=== PATIENT | male | born 1975 | race Caucasian/White ===

== ENCOUNTER 2020-09-02 12:52 | Observation (INO) ==
[2020-09-02] MEDS ORDERED: 0.9 % SODIUM CHLORIDE 2,000 ML IV ONE (13:28)
[2020-09-02] MEDS ORDERED: ONDANSETRON 4 MG/2 ML VIAL IV ONE (13:28)
--- NOTE | 2020-09-02 13:43 | Emergency Department Note ---
Nausea/Vomiting/Diarrhea HPI General Chief complaint: Nausea/Vomiting/Diarrhea Stated complaint: Several complaints Time Seen by Provider: 09/02/20 13:19 Source: patient Mode of arrival: ambulatory Limitations: no limitations History of Present Illness HPI Narrative: This a 45-year-old male patient who had an umbilical hernia repair with Dr. Villa on 08/17/2020. He has been having symptoms of nausea and fever for about 6 days. He is also experiencing a loss of appetite, headaches, myalgias, chills and sweats. He had a fever to 102 on Sunday. He went for a Covid test and it was negative. He saw his surgeon yesterday to evaluate his wound, and the surgeon noted that it was not healing as well as expected. He states that the incision has been draining small amounts of fluid. Today he presents with significant jaundice. He woke up with it this morning. He states that he has been taking his prescribed narcotic which is hydrocodone/acetaminophen as directed, has also been taking some DayQuil, and has been taking about 20 pills of kratom daily. He stopped taking these me dications on Sunday. He has a history of excessive alcohol use drinking up to 1/5 every weekend up until about a year ago when he quit drinking. He has no other significant medical history other than low testosterone and is on weekly testosterone. Other symptoms include difficulty initiating urine stream. He noted very dark, almost orange/reddish urine over the last few days. Also having some difficulty moving his bowels. No diarrhea. No melena or hematochezia. He has chronic abdominal pain since he was a child, and denies acute abdominal pain. Denies CVA tenderness. Denies cough and congestion. Related Data Home Medications Medication Instructions Recorded Confirmed anastrozole [Arimidex] 0.5 mg PO 2-3XW PRN 08/09/20 09/02/20 testosterone cypionate 250 mg IM QWEEK 08/09/20 09/02/20 Allergies Allergy/AdvReac Type Severity Reaction Status Date / Time Sulfa (Sulfonamide Allergy Mild Hives Verified 09/02/20 12:54 Antibiotics) Review of Systems ROS ROS Narrative: Narrative: All systems ED: reviewed and negative except as stated. [facility] Narrative Patient History Narrative: Narrative: Medical/Surgical/Family History All Active Problems Hepatitis (Acute) Acute viral syndrome (Acute) Abdominal bloating with cramps (Acute) Medical History FH: colon polyps Low testosterone in male Umbilical hernia Surgical History History of tonsillectomy History of umbilical hernia repair 08/17/2020-open S/P tympanoplasty Family History Father FH: colon polyps Other No pertinent family history Social History Smoking Status: Former smoker Alcohol Intake Frequency: former alcohol drinker Substance Use: does not use Exam Narrative Narrative: Narrative: General Limitations: no limitations General appearance: Present alert Eye Eye: Present PERRL, EOMI and scleral icterus ENT ENT: Present normal oropharynx Chest Chest: Present normal inspection and symmetric chest wall rise Respiratory Respiratory: Present normal lung sounds bilaterally Cardiovascular Cardiovascular: Present regular rate, normal rhythm and normal heart sounds Adbominal Abdominal: Present soft and distention; Absent tenderness, guarding, rigidity, Marlow's sign, tenderness at McBurney's Point and ascites Extremities Extremities: Present normal inspection and normal capillary refill Neurological Neurological: Present alert, oriented X3 and CN II-XII intact; Absent motor sensory deficit Psychiatric Psychiatric: Present normal affect and normal mood Skin Skin: Present warm (WNL) and other (Jaundice) Course Course Course Narrative: 45-year-old male presents with acute jaundice status post umbilical hernia surgery 2 weeks ago with Percocet and kratom use postoperatively. Reevaluation(s) Reevaluation #1: We will obtain labs, CBC, acetaminophen level, CRP, CMP, UA Blood cultures x2 Obtain limited abdominal ultrasound Contact poison control regarding kratom Reevaluation #2: He has mild transaminitis with an elevated a alk phos of 202. CRP is elevated 1.5 and he has a white blood cell count of 12.4. Serum creatinine not obtained secondary to elevated bilirubin of 11.5. Nctxt-sg-afco creatinine is 0.7. Right upper quadrant ultrasound shows cholestatic disease. No obstructive process. No pericolic fat stranding, fluid collections, or abscesses. Previous umbilical hernia with small heterogeneous formation, which could represent scar tissue versus air pocket versus possible abscess. Discussed with Dr. Osman from poison control with the following recommendations: -Check viral studies to include hepatitis A/B/C, EBV IgG/IgM, and CMV IgG IgM -Less likely to be acetaminophen poisoning given increased alk phos; however this must be considered as he has been taking narcotic with acetaminophen and [id number] DayQuil. Start N-acetylcysteine treatment prophylactically. -There are several case reports of kratom causing cholestatic hepatitis with LFT pattern of increased alk phos and mild transaminitis. Supportive care is the standard of care. -We will need admission for monitoring Vital Signs Vital signs: Vital Signs Temperature 99.0 F 09/02/20 12:54 Pulse Rate 91 H 09/02/20 12:54 Respiratory Rate 16 09/02/20 12:54 Blood Pressure 138/89 09/02/20 12:54 Pulse Oximetry (%) 99 09/02/20 12:54 Temperature 99.3 F H 09/02/20 20:25 Pulse Rate 98 H 09/02/20 20:25 Respiratory Rate 20 09/02/20 20:25 Blood Pressure 130/81 09/02/20 20:25 Pulse Oximetry (%) 96 09/02/20 20:25 MDM MDM Narrative Medical decision making narrative: Acute liver injury Cholestatic hepatitis Patient will need admission for monitoring for initiation of N-acetylcysteine therapies. Viral serologies have been ordered. Patient was signed out to Dr. Marlow, hospitalist service, who is accepting the patient for admission. The patient is stable at this time and agrees to admission. Lab Data Result diagrams: 09/02/20 13:38 09/02/20 15:59 Labs: Lab Results 09/02/20 09/02/20 09/02/20 Range/Units 13:38 13:38 13:38 WBC 12.4 H (4.5-11.0) K/mcL RBC 4.79 (4.50-5.90) M/mcL Hgb 15.0 (13.5-16.5) g/dL Hct 41.2 (41.0-55.0) % MCV 86.0 (80.0-100.0) fL MCH 31.3 (26.0-34.0) pg MCHC 36.4 H (31.0-36.0) g/dL RDW 13.2 (11.5-14.5) % Plt Count 212 (140-440) K/mcL MPV 9.9 (7.4-10.4) fL Seg Neutrophils % 62 (38-78) % Lymphocytes % 24 (15-49) % Monocytes % (Manual) 10 (1-12) % Eosinophils % (Manual) 4 (0-7) % Platelet Estimate Normal (Normal) RBC Morphology Normal (Normal) PT (11.9-14.5) sec INR (0.9-1.1) VBG Lactic Acid 0.7 (0.5-2.0) mmol/L Sodium 133 (133-145) mmol/L Potassium 3.7 (3.3-5.1) mmol/L Chloride 100 (96-108) mmol/L Carbon Dioxide 23 (22-30) mmol/L Anion Gap 10.0 (8.0-16.0) BUN 6 (6-20) mg/dL Creatinine TNP POC Creatinine (0.6-1.2) mg/dL GFR Calculation TNP Glucose 121 H (70-105) mg/dL Calcium 8.5 L (8.6-10.4) mg/dL Total Bilirubin 11.5 H (0.1-1.0) mg/dL AST 196 H (<40) U/L ALT 407 H (<40) U/L Alkaline Phosphatase 202 H (39-117) U/L C-Reactive Protein 1.50 H (0.03-0.80) mg/dL Total Protein 6.4 (5.9-8.4) gm/dL Albumin 3.6 (3.2-5.2) gm/dL Globulin 2.8 (2.2-3.7) gm/dL Albumin/Globulin Ratio 1.3 (1.0-2.3) Lipase 26 (7-60) U/L Urine Color Urine Appearance (Clear) Urine pH (5.0-9.0) Ur Specific [place] (1.000-1.035) Urine Protein (Negative) mg/dL Urine Glucose (UA) (Negative) mg/dL Urine Ketones (Negative) mg/dL Urine Occult Blood (Negative) mg/dL Urine Nitrate (Negative) Urine Bilirubin (Negative) mg/dL Urine Urobilinogen mg/dL Ur Leukocyte Esterase (Negative) /ug Ur Culture Indicated? Acetaminophen ug/mL Hepatitis A IgM Ab (Non-Reactive) Hep Bs Antigen (Negative) Hep Bs Antibody (Negative) Hep B Core IgM Ab (Non-Reactive) Hepatitis C Antibody (Non-Reactive) 09/02/20 09/02/20 09/02/20 Range/Units 13:38 13:38 13:38 WBC (4.5-11.0) K/mcL RBC (4.50-5.90) M/mcL Hgb (13.5-16.5) g/dL Hct (41.0-55.0) % MCV (80.0-100.0) fL MCH (26.0-34.0) pg MCHC (31.0-36.0) g/dL RDW (11.5-14.5) % Plt Count (140-440) K/mcL MPV (7.4-10.4) fL Seg Neutrophils % (38-78) % Lymphocytes % (15-49) % Monocytes % (Manual) (1-12) % Eosinophils % (Manual) (0-7) % Platelet Estimate (Normal) RBC Morphology (Normal) PT 13.0 (11.9-14.5) sec INR 0.9 (0.9-1.1) VBG Lactic Acid (0.5-2.0) mmol/L Sodium (133-145) mmol/L Potassium (3.3-5.1) mmol/L Chloride (96-108) mmol/L Carbon Dioxide (22-30) mmol/L Anion Gap (8.0-16.0) BUN (6-20) mg/dL Creatinine POC Creatinine (0.6-1.2) mg/dL GFR Calculation Glucose (70-105) mg/dL Calcium (8.6-10.4) mg/dL Total Bilirubin (0.1-1.0) mg/dL AST (<40) U/L ALT (<40) U/L Alkaline Phosphatase (39-117) U/L C-Reactive Protein (0.03-0.80) mg/dL Total Protein (5.9-8.4) gm/dL Albumin (3.2-5.2) gm/dL Globulin (2.2-3.7) gm/dL Albumin/Globulin Ratio (1.0-2.3) Lipase (7-60) U/L Urine Color Urine Appearance (Clear) Urine pH (5.0-9.0) Ur Specific [place] (1.000-1.035) Urine Protein (Negative) mg/dL Urine Glucose (UA) (Negative) mg/dL Urine Ketones (Negative) mg/dL Urine Occult Blood (Negative) mg/dL Urine Nitrate (Negative) Urine Bilirubin (Negative) mg/dL Urine Urobilinogen mg/dL Ur Leukocyte Esterase (Negative) /ug Ur Culture Indicated? Acetaminophen < 5.0 ug/mL Hepatitis A IgM Ab (Non-Reactive) Hep Bs Antigen (Negative) Hep Bs Antibody 3.65 negative (Negative) Hep B Core IgM Ab (Non-Reactive) Hepatitis C Antibody (Non-Reactive) 09/02/20 09/02/20 09/02/20 Range/Units 13:38 14:30 15:59 WBC (4.5-11.0) K/mcL RBC (4.50-5.90) M/mcL Hgb (13.5-16.5) g/dL Hct (41.0-55.0) % MCV (80.0-100.0) fL MCH (26.0-34.0) pg MCHC (31.0-36.0) g/dL RDW (11.5-14.5) % Plt Count (140-440) K/mcL MPV (7.4-10.4) fL Seg Neutrophils % (38-78) % Lymphocytes % (15-49) % Monocytes % (Manual) (1-12) % Eosinophils % (Manual) (0-7) % Platelet Estimate (Normal) RBC Morphology (Normal) PT (11.9-14.5) sec INR (0.9-1.1) VBG Lactic Acid (0.5-2.0) mmol/L Sodium (133-145) mmol/L Potassium (3.3-5.1) mmol/L Chloride (96-108) mmol/L Carbon Dioxide (22-30) mmol/L Anion Gap (8.0-16.0) BUN (6-20) mg/dL Creatinine 0.7 POC Creatinine 0.7 (0.6-1.2) mg/dL GFR Calculation 112 Glucose (70-105) mg/dL Calcium (8.6-10.4) mg/dL Total Bilirubin (0.1-1.0) mg/dL AST (<40) U/L ALT (<40) U/L Alkaline Phosphatase (39-117) U/L C-Reactive Protein (0.03-0.80) mg/dL Total Protein (5.9-8.4) gm/dL Albumin (3.2-5.2) gm/dL Globulin (2.2-3.7) gm/dL Albumin/Globulin Ratio (1.0-2.3) Lipase (7-60) U/L Urine Color [place] Urine Appearance Clear (Clear) Urine pH 7.0 (5.0-9.0) Ur Specific [place] 1.006 (1.000-1.035) Urine Protein Negative (Negative) mg/dL Urine Glucose (UA) Negative (Negative) mg/dL Urine Ketones Negative (Negative) mg/dL Urine Occult Blood Negative (Negative) mg/dL Urine Nitrate Negative (Negative) Urine Bilirubin 2.0 A (Negative) mg/dL Urine Urobilinogen Negative mg/dL Ur Leukocyte Esterase Negative (Negative) /ug Ur Culture Indicated? No Acetaminophen ug/mL Hepatitis A IgM Ab (Non-Reactive) Hep Bs Antigen (Negative) Hep Bs Antibody (Negative) Hep B Core IgM Ab (Non-Reactive) Hepatitis C Antibody Non-reactive (Non-Reactive) 09/02/20 Range/Units 16:44 WBC (4.5-11.0) K/mcL RBC (4.50-5.90) M/mcL Hgb (13.5-16.5) g/dL Hct (41.0-55.0) % MCV (80.0-100.0) fL MCH (26.0-34.0) pg MCHC (31.0-36.0) g/dL RDW (11.5-14.5) % Plt Count (140-440) K/mcL MPV (7.4-10.4) fL Seg Neutrophils % (38-78) % Lymphocytes % (15-49) % Monocytes % (Manual) (1-12) % Eosinophils % (Manual) (0-7) % Platelet Estimate (Normal) RBC Morphology (Normal) PT (11.9-14.5) sec INR (0.9-1.1) VBG Lactic Acid (0.5-2.0) mmol/L Sodium (133-145) mmol/L Potassium (3.3-5.1) mmol/L Chloride (96-108) mmol/L Carbon Dioxide (22-30) mmol/L Anion Gap (8.0-16.0) BUN (6-20) mg/dL Creatinine POC Creatinine (0.6-1.2) mg/dL GFR Calculation Glucose (70-105) mg/dL Calcium (8.6-10.4) mg/dL Total Bilirubin (0.1-1.0) mg/dL AST (<40) U/L ALT (<40) U/L Alkaline Phosphatase (39-117) U/L C-Reactive Protein (0.03-0.80) mg/dL Total Protein (5.9-8.4) gm/dL Albumin (3.2-5.2) gm/dL Globulin (2.2-3.7) gm/dL Albumin/Globulin Ratio (1.0-2.3) Lipase (7-60) U/L Urine Color Urine Appearance (Clear) Urine pH (5.0-9.0) Ur Specific [place] (1.000-1.035) Urine Protein (Negative) mg/dL Urine Glucose (UA) (Negative) mg/dL Urine Ketones (Negative) mg/dL Urine Occult Blood (Negative) mg/dL Urine Nitrate (Negative) Urine Bilirubin (Negative) mg/dL Urine Urobilinogen mg/dL Ur Leukocyte Esterase (Negative) /ug Ur Culture Indicated? Acetaminophen ug/mL Hepatitis A IgM Ab Non-reactive (Non-Reactive) Hep Bs Antigen Negative (Negative) Hep Bs Antibody (Negative) Hep B Core IgM Ab Non-reactive (Non-Reactive) Hepatitis C Antibody Non-reactive (Non-Reactive) ED POC Tests ED POC Tests: IKE - Influenza A Negative IKE - Influenza B Negative IKE - SARS Antigen Negative CC TIME Critical Care Time Critical Care Time: Yes Total Critical Care Time: 65 Attestation: Patient is at risk of for acute liver injury. More than 50% of my time was spent at the bedside with the patient, evaluation for imaging and laboratory studies, discussion with poison control for differential and recommendations, and coordination of care for admission. Discharge Plan Patient/Caregiver Discharge Instructions Pt seen by SWITCHMAN SUPERVISOR/PA only: Yes Clinical Impression: Hepatitis, Acute viral syndrome Patient Disposition: Xfer As Inpt ([facility]) Condition: Fair Discharge Date/Time: 09/02/20 17:59 Discharge Location: [facility]
--- NOTE | 2020-09-02 14:33 | Ultrasound Report ---
History: New onset jaundice FINDINGS: The liver is within upper limits normal in size and appears homogeneous. There is no evidence of a mass or infiltrative process. Doppler shows normal blood flow in the hepatic and portal veins. The gallbladder is severely contracted and there is uniform thickening of the wall. Patient was nontender while scanning over the gallbladder. The wall measures 4 mm. No stone is seen within the lumen. Common bile duct measures 4 mm. Visualized portions of the pancreas appear normal without evidence of a mass or inflammation. No ascites is present. Patient is reported fatty umbilical hernia repair performed two weeks ago. At the level of the umbilicus there is a complex heterogeneous structure with bright echogenic foci and hypoechoic components. It measures 1.9 x 2.3 x 2.6 cm. Adjacent to this there is a small pocket of fluid in the subcutaneous fat which measures 4 x 8 x 8 mm. IMPRESSION: Anatomically normal liver Abnormally thickened gallbladder wall. This is a nonspecific finding which may be seen after eating or with chronic cholecystitis Heterogeneous collection around the umbilicus at the site of recent surgery. This could be evolving scar tissue with inflammation, abscess or recurrent hernia. Sheron Sheriff was called with report Interpreted and Authenticated by: Catracho Hernandez 09/02/20
[2020-09-02 14:52] LABS: Hematocrit 41.2 % (41.0-55.0); Mean Corpuscular HGB Conc 36.4 g/dL (31.0-36.0); Mean Platelet Volume 9.9 fL (7.4-10.4); Platelet Count 212 K/mcL (140-440); RBC 4.79 M/mcL (4.50-5.90); Red Cell Distribution Width 13.2 % (11.5-14.5); WBC 12.4 K/mcL (4.5-11.0)
[2020-09-02 14:56] LABS: INR 0.9 (0.9-1.1)
[2020-09-02 14:59] LABS: ALT/SGPT 407 U/L (<40); AST/SGOT 196 U/L (<40); Albumin 3.6 gm/dL (3.2-5.2); Albumin/Globulin Ratio 1.3 (1.0-2.3); Alkaline Phosphatase 202 U/L (39-117); Bilirubin,Total 11.5 mg/dL (0.1-1.0); Blood Urea Nitrogen 6 mg/dL (6-20); Calcium 8.5 mg/dL (8.6-10.4); Carbon Dioxide 23 mmol/L (22-30); Chloride 100 mmol/L (96-108); Globulin 2.8 gm/dL (2.2-3.7); Glucose 121 mg/dL (70-105)
[2020-09-02] MEDS ORDERED: ACETYLCYSTEINE IV ONE ×5 (15:53→22:00)
[2020-09-02] MEDS ORDERED: WATER IV ONE ×5 (15:53→22:00)
[2020-09-02] MEDS ORDERED: DEXTROSE 5% IV ONE ×5 (15:53→22:00)
[2020-09-02 16:05] LABS: Eosinophils % (Manual) 4 % (0-7); Lymphocytes % 24 % (15-49); Monocytes % (Manual) 10 % (1-12); Platelet Estimate NORMAL (Normal); RBC Morphology NORMAL (Normal); Segmented Neutrophils % 62 % (38-78)
[2020-09-02 16:09] LABS: POC Creatinine 0.7 mg/dL (0.6-1.2)
[2020-09-02 16:14] LABS: Appearance,Urine CLEAR (Clear); Color,Urine AMBER; Culture Indicated,Urine No; Glucose,Urine (UA) Negative (Negative); Ketones,Urine Negative (Negative); Leukocyte Esterase,Urine Negative /ug (Negative); Nitrate,Urine Negative (Negative); Protein,Urine Negative (Negative); Specific Gravity,Urine 1.006 (1.000-1.035); Urine Blood Negative (Negative); Urobilinogen,Urine Negative
[2020-09-02] MEDS ORDERED: IBUPROFEN 200 MG TABLET PO ONE (16:30)
[2020-09-02 17:11] LABS: Hepatitis B Surface Antibody 3.65 Negative (Negative); Hepatitis C Virus Antibody Non-Reactive (Non-Reactive)
[2020-09-02 18:13] LABS: Glomerular Filtration Rate 112
[2020-09-02] MEDS ORDERED: PROCHLORPERAZINE 10 MG/2 ML VIAL IV PRN (18:17)
[2020-09-02] MEDS ORDERED: KETOROLAC 10 MG TABLET PO PRN (18:17)
[2020-09-02] MEDS ORDERED: MAGNESIUM HYDROXIDE 30 ML ORAL.SUSP PO PRN (18:17)
[2020-09-02] MEDS ORDERED: ONDANSETRON 4 MG/2 ML VIAL IV PRN (18:17)
[2020-09-02] MEDS ORDERED: SENNOSIDES 1 TABLET PO PRN (18:17)
[2020-09-02] MEDS ORDERED: 0.9 % SODIUM CHLORIDE 1,000 ML IV SCH ×2 (18:17→19:26)
[2020-09-02] MEDS ORDERED: oxyCODONE HCL 5 MG TABLET PO PRN (18:17)
[2020-09-02 18:29] LABS: Hepatitis B Surface Antigen Negative (Negative); Hepatitis C Virus Antibody Non-Reactive (Non-Reactive)
--- NOTE | 2020-09-02 20:21 | Internal Med History&Physical ---
HPI History of Present Illness Patient information: Note initiated : 09/02/20 at 8:19 pm Service Date, if different from initiated Date: [] Patient: Teodoro Spencer a 45 y/o M admitted on 09/02/20 for Several Complaints. History of present illness: Mr. Spencer is a 45 year old M who presents to the emergency department due to jaundice. He has a recent history of umbilical hernia repair on 08/27. Postoperatively, the patient had a prescription for Morris 5/325, 20 tablets. Due to postoperative pain he started using kratom [id number] pills, consuming about 20 pills a day to help augment his analgesia. He was also using ibuprofen. On last Sunday evening (08/28) the patient developed chills and nausea. On Sunday he had fever to 102 degrees, chills and developed a headache. This was also associated with myalgia, malaise and a dry mouth. Since last , he is intermittently felt feverish, though that did improve 3 days ago on Sunday. His headache is persisted, its throbbing, frontal going to the back, associated with mild photophobia. He also notes that when watching TV, rapid motions on the TV can induce nausea. He is occasionally had headaches in the past, no history of migraine. His mother does have a history of migraines. No neck stiffness. He is up frequently during the night, as his headache tends to wax and wane throughout the night, awakening him. Today about 3 AM he is feeling nauseated with a headache, have been woken by the headache. In the bathroom he noticed that his eyes looked yellow. His initially later that morning did not think he looked that abnormal, however while later his mother visited and she noticed that he looked yellow. He had been seen for routine postsurgical follow-up yesterday, and there was no apparent jaundice at that time. During this time, given his symptoms, he had SARS-CoV-2 nasal swab done on Sunday, which he found out had negative results today. Due to the jaundice who presents to the emergency department. Evaluation reveals afebrile patient with normal vital signs. Labs were notable for total bilirubin 11.5, AST of 196, ALT 407, alkaline phosphatase of 202. White count was mildly elevated at 12,000, renal function was normal as was INR at 0.9. Given his Morris use as well as using [id number] cold and flu preparations, there was concern for possible acetaminophen toxicity. Acetaminophen level is undetected. Poison Control Center was contacted. Given his history and pattern of enzymes there were concern for possible kratom toxicity. This has been reported in the literature and is a likelihood score of "B" which means likely contributor to hepatic toxicity, according to the NIH liver toxicity database. Given these findings, possibility this could represent acetaminophen, the Poison Control Center recommended acetylcysteine therapy and further evaluation. Patient has not generally been out of his house postoperatively. He has not eaten in restaurants nor pot locks. He received no transfusions, has had no new sexual partners. He does inject testosterone weekly as prescribed, using a new needle each time. No nonprescription injection drug use. He does not drink alcohol. He has no history of liver disease. There is no family history of liver disease. He is being admitted to continue acetylcysteine treatment and to monitor for deterioration and hepatic function. Review of Systems Review of systems: In addition to reported above in the HPI, the patient has had some mild dyspnea, felt a mild tightness across his chest last night. Complains of poor energy. He has had myalgias. He has had a significant dry mouth and is drinking water. His vision is maybe a little more blurry than usual with his prescription glasses. No double vision. No cough or sputum production. No current abdominal pain, no dysuria. He notes that his urine has gotten more dark and more yellow as the week has progressed. No rashes, no bruising, no bleeding. No focal neurologic symptoms. PFSH PFSH All Active Problems (Updated 09/02/20 @ 20:38 by Anita Dempsey MD) Hepatitis (Acute) Acute viral syndrome (Acute) Abdominal bloating with cramps (Acute) Medical History (Updated 09/02/20 @ 20:38 by Anita Dempsey MD) FH: colon polyps Low testosterone in male Umbilical hernia Surgical History (Updated 09/02/20 @ 20:38 by Anita Dempsey MD) History of tonsillectomy History of umbilical hernia repair 08/17/2020-open S/P tympanoplasty Family History Father FH: colon polyps Other No pertinent family history Social History marital status: smoking status: Former smoker smoking status stop date: 07/02/15 alcohol intake frequency: former alcohol drinker substance use type: does not use MEDS/ALLERGIES Home Medications and Allergies Home Medications Medication Instructions Recorded Confirmed Type anastrozole [Arimidex] 0.5 mg PO 2-3XW PRN 08/09/20 09/02/20 History testosterone cypionate 250 mg IM QWEEK 08/09/20 09/02/20 History Allergies Allergy/AdvReac Type Severity Reaction Status Date / Time Sulfa (Sulfonamide Allergy Mild Hives Verified 09/02/20 12:54 Antibiotics) EXAM Constitutional Vitals: Temp Pulse Resp BP Pulse Ox 99.1 F H 96 H 16 132/85 98 09/02/20 18:07 09/02/20 18:07 09/02/20 18:07 09/02/20 18:07 09/02/20 18:07 GENERAL: Alert, oriented, in no acute distress. Cooperative, appears stated age. HEENT: Atraumatic. PERRL at 3 mm, EOMI without nystagmus, conjunctiva not injected, scleral icterus present. Hearing grossly intact. Mucous membranes are moist, oropharynx without lip or gum lesions, no erythema. Tongue midline. NECK: Supple without meningismus, no thyromegaly RESPIRATORY: Breath sounds clear bilaterally without wheezes or rhonchi. Respiratory effort is unlabored. CARDIOVASCULAR: Regular rate and rhythm, no murmur gallop or rub. No peripheral edema. Carotid pulses 2+ without bruit. Pedal pulses 2+. GI: Abdomen soft, nontender, no guarding or rebound. Liver margin is not palpable, no right upper quadrant tenderness with palpation. Spleen is not palpable. Bowel sounds are present. LYMPHATIC: No cervical or supraclavicular lymphadenopathy MUSCULOSKELETAL: No joint erythema or swelling, normal range of motion in all extremities. SKIN: Jaundiced, intact, warm, dry. Skin turgor normal. Healing umbilical surgical wound. NEUROLOGIC: Cranial nerves II through XII grossly intact. Muscle mass normal. Strength 5/5 in the upper and lower extremities. Sensation intact to light touch bilaterally. PSYCHIATRIC: Alert, oriented x3, normal mood and affect, normal insight. DATA Data Completed and Pending Labs: Labs from last 24 hours 03/10/2009/02/20 09/02/20 16:44 16:44 16:44 WBC RBC Hgb Hct MCV MCH MCHC RDW Plt Count MPV Seg Neutrophils % Lymphocytes % Monocytes % (Manual) Eosinophils % (Manual) Platelet Estimate RBC Morphology PT INR VBG Lactic Acid Sodium Potassium Chloride Carbon Dioxide Anion Gap BUN Creatinine POC Creatinine GFR Calculation Glucose Calcium Total Bilirubin AST ALT Alkaline Phosphatase C-Reactive Protein Total Protein Albumin Globulin Albumin/Globulin Ratio Lipase Urine Color Urine Appearance Urine pH Ur Specific [place] Urine Protein Urine Glucose (UA) Urine Ketones Urine Occult Blood Urine Nitrate Urine Bilirubin Urine Urobilinogen Ur Leukocyte Esterase Ur Culture Indicated? Acetaminophen CMV IgG Ab Pending CMV IgM Ab Pending EBV Capsid Ag IgG Ab Pending EBV Capsid Ag IgM Ab Pending EBV Early Antigen Pending EBV Nuclear Ag IgG Ab Pending EBV Antibody Interp Pending Hepatitis A IgM Ab Non-reactive Hepatitis A Ab Total Hep Bs Antigen Negative Hep Bs Antibody Hep B Core IgM Ab Non-reactive Hepatitis C Antibody Non-reactive 09/02/20 09/02/20 09/02/20 15:59 14:30 13:38 WBC RBC Hgb Hct MCV MCH MCHC RDW Plt Count MPV Seg Neutrophils % Lymphocytes % Monocytes % (Manual) Eosinophils % (Manual) Platelet Estimate RBC Morphology PT INR VBG Lactic Acid Sodium Potassium Chloride Carbon Dioxide Anion Gap BUN Creatinine 0.7 POC Creatinine 0.7 GFR Calculation 112 Glucose Calcium Total Bilirubin AST ALT Alkaline Phosphatase C-Reactive Protein Total Protein Albumin Globulin Albumin/Globulin Ratio Lipase Urine Color [place] Urine Appearance Clear Urine pH 7.0 Ur Specific [place] 1.006 Urine Protein Negative Urine Glucose (UA) Negative Urine Ketones Negative Urine Occult Blood Negative Urine Nitrate Negative Urine Bilirubin 2.0 A Urine Urobilinogen Negative Ur Leukocyte Esterase Negative Ur Culture Indicated? No Acetaminophen CMV IgG Ab CMV IgM Ab EBV Capsid Ag IgG Ab EBV Capsid Ag IgM Ab EBV Early Antigen EBV Nuclear Ag IgG Ab EBV Antibody Interp Hepatitis A IgM Ab Hepatitis A Ab Total Hep Bs Antigen Hep Bs Antibody Hep B Core IgM Ab Hepatitis C Antibody Non-reactive 09/02/20 09/02/20 09/02/20 13:38 13:38 13:38 WBC RBC Hgb Hct MCV MCH MCHC RDW Plt Count MPV Seg Neutrophils % Lymphocytes % Monocytes % (Manual) Eosinophils % (Manual) Platelet Estimate RBC Morphology PT 13.0 INR 0.9 VBG Lactic Acid Sodium Potassium Chloride Carbon Dioxide Anion Gap BUN Creatinine POC Creatinine GFR Calculation Glucose Calcium Total Bilirubin AST ALT Alkaline Phosphatase C-Reactive Protein Total Protein Albumin Globulin Albumin/Globulin Ratio Lipase Urine Color Urine Appearance Urine pH Ur Specific [place] Urine Protein Urine Glucose (UA) Urine Ketones Urine Occult Blood Urine Nitrate Urine Bilirubin Urine Urobilinogen Ur Leukocyte Esterase Ur Culture Indicated? Acetaminophen < 5.0 CMV IgG Ab CMV IgM Ab EBV Capsid Ag IgG Ab EBV Capsid Ag IgM Ab EBV Early Antigen EBV Nuclear Ag IgG Ab EBV Antibody Interp Hepatitis A IgM Ab Hepatitis A Ab Total Pending Hep Bs Antigen Hep Bs Antibody 3.65 negative Hep B Core IgM Ab Hepatitis C Antibody 09/02/20 09/02/20 09/02/20 13:38 13:38 13:38 WBC 12.4 H RBC 4.79 Hgb 15.0 Hct 41.2 MCV 86.0 MCH 31.3 MCHC 36.4 H RDW 13.2 Plt Count 212 MPV 9.9 Seg Neutrophils % 62 Lymphocytes % 24 Monocytes % (Manual) 10 Eosinophils % (Manual) 4 Platelet Estimate Normal RBC Morphology Normal PT INR VBG Lactic Acid 0.7 Sodium 133 Potassium 3.7 Chloride 100 Carbon Dioxide 23 Anion Gap 10.0 BUN 6 Creatinine TNP POC Creatinine GFR Calculation TNP Glucose 121 H Calcium 8.5 L Total Bilirubin 11.5 H AST 196 H ALT 407 H Alkaline Phosphatase 202 H C-Reactive Protein 1.50 H Total Protein 6.4 Albumin 3.6 Globulin 2.8 Albumin/Globulin Ratio 1.3 Lipase 26 Urine Color Urine Appearance Urine pH Ur Specific [place] Urine Protein Urine Glucose (UA) Urine Ketones Urine Occult Blood Urine Nitrate Urine Bilirubin Urine Urobilinogen Ur Leukocyte Esterase Ur Culture Indicated? Acetaminophen CMV IgG Ab CMV IgM Ab EBV Capsid Ag IgG Ab EBV Capsid Ag IgM Ab EBV Early Antigen EBV Nuclear Ag IgG Ab EBV Antibody Interp Hepatitis A IgM Ab Hepatitis A Ab Total Hep Bs Antigen Hep Bs Antibody Hep B Core IgM Ab Hepatitis C Antibody Imaging and Cardiology US - abdomen: Status: image reviewed by me Additional comments: IMPRESSION: Anatomically normal liver Abnormally thickened gallbladder wall. This is a nonspecific finding which may be seen after eating or with chronic cholecystitis Heterogeneous collection around the umbilicus at the site of recent surgery. This could be evolving scar tissue with inflammation, abscess or recurrent hernia A/P Narrative A/P Narrative: Assessment: #Acute liver injury: Patient without evidence of encephalopathy, normal INR, not in fulminant hepatic failure -Elevations of AST and ALT approximately five and 10 times upper limit of normal -Elevation of alkaline phosphatase to suggest possible cholestasis -R value is 4.3, suggesting mixed hepatocellular and cholestatic picture -Significantly elevated bilirubin 11.8 -Differential for etiology includes acetaminophen with late presentation -Kratom toxicity also possible, case reports describes similar presentation -Acute viral hepatitis possible, though bases are often even more significant ly elevated -Artificial anabolic steroids are associated with liver injury, though testosterone is not in the database of compounds associated with liver injury -Iron overload is in the differential, less likely Woodrow's disease or autoimmune hepatitis given the level of elevations <15 uln Plan: * Hospitalized in observation * Continue acetylcysteine protocol * Send acute viral hepatitis panel * Send EBV and CMV antibodies * Check iron and TIBC * If evidence of iron overload, then check ferritin * Continue to monitor transaminases, bilirubin, alkaline phosphatase and INR * If work-up unrevealing, consider sending GURVINDER, anti-smooth muscle antibodies and antiliver/kidney microsomal antibodies * Ibuprofen, judicious oxycodone for headache Prophylaxis: Early ambulation and low risk patient CODE STATUS: Full code QUALITY VTE Deep Vein Thrombosis/Pulmonary Embolism Present on Admission: No
[2020-09-02] MEDS: FAMOTIDINE 20 MG TABLET PO SCH (20:34)
[2020-09-02] MEDS: 0.9 % SODIUM CHLORIDE 10 ML SYRINGE IV SCH (20:35)
[2020-09-02] MEDS: IBUPROFEN 600 MG TABLET PO PRN (22:35)
[2020-09-03] MEDS: 0.9 % SODIUM CHLORIDE 10 ML SYRINGE IV SCH ×2 (06:05→14:32)
[2020-09-03] MEDS: IBUPROFEN 600 MG TABLET PO PRN ×2 (06:25→12:08)
[2020-09-03 06:47] LABS: Basophils # (Auto) 0.07 K/mcL (0.00-0.20); Basophils % (Auto) 0.7 % (0.0-2.0); Eosinophils # (Auto) 0.46 K/mcL (0.00-0.70); Eosinophils % (Auto) 4.7 % (0.0-7.0); Hematocrit 37.3 % (41.0-55.0); Lymphocytes # (Auto) 2.23 K/mcL (1.50-4.80); Lymphocytes % (Auto) 22.9 % (15.0-49.0); Mean Corpuscular HGB Conc 37.5 g/dL (31.0-36.0); Mean Platelet Volume 9.6 fL (7.4-10.4); Monocytes # (Auto) 0.97 K/mcL (0.10-0.90); Neutrophils % (Auto) 61.7 % (38.0-78.0); Platelet Count 224 K/mcL (140-440); Prothrombin Time 13.8 sec (11.9-14.5); RBC 4.39 M/mcL (4.50-5.90); Red Cell Distribution Width 13.2 % (11.5-14.5); WBC 9.7 K/mcL (4.5-11.0)
[2020-09-03 07:05] LABS: Iron 82 ug/dL (61-157); TIBC Calculation 238 ug/dl (228-428); Transferrin % Saturation 34 % (20-50)
[2020-09-03 07:07] LABS: ALT/SGPT 351 U/L (<40); AST/SGOT 180 U/L (<40); Albumin 3.2 gm/dL (3.2-5.2); Albumin/Globulin Ratio 1.3 (1.0-2.3); Alkaline Phosphatase 238 U/L (39-117); Bilirubin,Direct 8.9 mg/dL (<0.3); Bilirubin,Total 10.7 mg/dL (0.1-1.0); Blood Urea Nitrogen 5 mg/dL (6-20); Calcium 8.3 mg/dL (8.6-10.4); Carbon Dioxide 25 mmol/L (22-30); Chloride 102 mmol/L (96-108); Globulin 2.5 gm/dL (2.2-3.7); Glucose 146 mg/dL (70-105); Lactate Dehydrogenase 208 U/L (135-225); Phosphorous 1.9 mg/dL (2.5-4.5); Triglycerides 191 mg/dL (<150)
[2020-09-03] MEDS: FAMOTIDINE 20 MG TABLET PO SCH (08:49)
--- NOTE | 2020-09-03 12:01 | Discharge Summary ---
Discharge Provider Provider Patient information: Note initiated : 09/03/20 at 11:59 am Service Date, if different from initiated Date: [] Patient: Teodoro Spencer a 45 y/o M admitted on 09/02/20 for Several Complaints. Chief Complaint: Jaundice Date of admission: 09/02/20 17:59 Discharge date: 09/03/20 Primary care physician: Dean French PA-C Admitting clinician: Anita Dempsey Consults: 09/02/20 Consult to Physician [CONS] Stat Comment: Consulting Provider: Anita Dempsey Reason For Exam: Physician to Consult Discharging clinician: Anita Dempsey Discharge Meds Discharge Medications Home Medications anastrozole [Arimidex] 0.5 mg PO 2-3XW PRN 08/09/20 [History Confirmed 09/02/20 Last Taken 08/28/20 09:00] testosterone cypionate 250 mg IM QWEEK 08/09/20 [History Confirmed 09/02/20 Last Taken 08/28/20 09:00] COURSE Hospital Course Hospital course: Presentation: Mr. Spencer is a 45 year old M who presents to the emergency department due to jaundice. He has a recent history of umbilical hernia repair on 08/27. Postoperatively, the patient had a prescription for Vander[place] 5/325, 20 tablets. Due to postoperative pain he started using kratom [id number] pills, consuming about 20 pills a day to help augment his analgesia. He was also using ibuprofen. On last Sunday evening (08/28) the patient developed chills and nausea. On Sunday he had fever to 102 degrees, chills and developed a headache. This was also associated with myalgia, malaise and a dry mouth. Since last weekend, he is intermittently felt feverish, though that did improve 3 days ago on Sunday. Today about 3 AM he is feeling nauseated with a headache, have been woken by the headache. In the bathroom he noticed that his eyes looked yellow. His initially later that morning did not think he looked that abnormal, however while later his mother visited and she noticed that he looked yellow. He had been seen for routine postsurgical follow-up yesterday, and there was no apparent jaundice at that time. During this time, given his symptoms, he had SARS-CoV-2 nasal swab done on Sunday, which he found out had negative results on the day of hospitalization. Due to the jaundice who presents to the emergency department. Evaluation reveals afebrile patient with normal vital signs. Labs were notable for total bilirubin 11.5, AST of 196, ALT 407, alkaline phosphatase of 202. White count was mildly elevated at 12,000, renal function was normal as was INR at 0.9. Given his Vanderpool use as well as using [id number] cold and flu preparations, there was concern for possible acetaminophen toxicity. Acetaminophen level is undetected. Poison Control Center was contacted. Given his history and pattern of enzymes there were concern for possible kratom toxicity. This has been reported in the literature and is a likelihood score of "B" which means likely contributor to hepatic toxicity, according to the NIH liver toxicity database. Given these findings, possibility this could represent acetaminophen, the Poison Control Center recommended acetylcysteine therapy and further evaluation. Patient has not generally been out of his house postoperatively. He does not drink alcohol. He has no history of liver disease. There is no family history of liver disease. He has had no risk factors for blood-borne hepatitis infection. Course: During the patient's hospitalization he tolerated acetylcysteine infusion protocol. The following day total bilirubin had improved mildly to 10.7 and transaminases were improving. His R-score at presentation was 4.3, suggesting a mixed hepatocellular and cholestatic process. At discharge the score was down to 2.5, bordering more towards cholestatic. Cholestatic and hepatocellular hepatitis has been reported with kratom use. In reviewing case reports, his presenting symptoms were similar to prior reports of kratom liver damage. It is also possible any liver toxicity from kratom was augmented by acetaminophen use. Patient's synthetic liver function was intact with normal INR. He had no evidence of encephalopathy. Acute hepatitis panel was negative. CMV and EBV assays are pending at discharge. Total iron and iron saturation were normal. Given his improvement with supportive care, further evaluation for other etiologies such as autoimmune hepatitis or copper overload were not undertaken. If he fails to continue to improve, these should be considered. His headache slowly improved and was generally controlled with ibuprofen. He will be discharged with close outpatient follow-up early next week. Discharge diagnosis: Acute liver injury, possibly secondary to kratom use Procedures: None Time Spent with Patient Time attestation: Total time spent providing and/or coordinating discharge services: >30 min EXAM Constitutional Vitals: Temp Pulse Resp BP Pulse Ox 98.6 F 81 18 124/80 97 09/03/20 11:45 09/03/20 11:45 09/03/20 11:45 09/03/20 11:45 09/03/20 11:45 General appearance: no acute distress Head Head exam: Present normal inspection Eye Eye exam: Present scleral icterus Respiratory Respiratory exam: Present normal respiratory exam Cardiovascular Cardiovascular exam: Present normal rate and rhythm GI/Abdominal GI/Abdominal exam: Present normal bowel sounds and soft; Absent distended, organomegaly, rebound and tenderness Additional comments: Liver edge not palpable, no right upper quadrant tenderness Extremities Exam Extremities exam: Absent pedal edema Neurological Exam Neurological exam: Present alert and oriented X3; Absent motor sensory deficit Skin Skin exam: Present abrasion and warm Additional comments: Jaundice present Discharge Data Data Completed and Pending Labs on day of discharge: Labs from last 24 hours 09/03/20 09/03/20 09/03/20 05:41 05:41 05:41 WBC RBC Hgb Hct MCV MCH MCHC RDW Plt Count MPV Neut % (Auto) Lymph % (Auto) Dade % (Auto) Eos % (Auto) Baso % (Auto) Lymph # (Auto) [place]ade # (Auto) Eos # (Auto) Baso # (Auto) Seg Neutrophils % Lymphocytes % Monocytes % (Manual) Eosinophils % (Manual) Absolute Neutrophils Platelet Estimate RBC Morphology PT 13.8 INR 1.0 VBG Lactic Acid Sodium 136 Potassium 3.5 Chloride 102 Carbon Dioxide 25 Anion Gap 9.0 BUN 5 L Creatinine TNP POC Creatinine GFR Calculation TNP Glucose 146 H Uric Acid 2.0 L Calcium 8.3 L Phosphorus 1.9 L Magnesium 1.9 Iron 82 TIBC 238 Unsat Iron Binding 156 Transferrin % Sat 34 Total Bilirubin 10.7 H Direct Bilirubin 8.9 H GGT 240 H AST 180 H ALT 351 H Alkaline Phosphatase 238 H Lactate Dehydrogenase 208 C-Reactive Protein Total Protein 5.7 L Albumin 3.2 Globulin 2.5 Albumin/Globulin Ratio 1.3 Triglycerides 191 H Lipase Urine Color Urine Appearance Urine pH Ur Specific [place] Urine Protein Urine Glucose (UA) Urine Ketones Urine Occult Blood Urine Nitrate Urine Bilirubin Urine Urobilinogen Ur Leukocyte Esterase Ur Culture Indicated? Acetaminophen CMV IgG Ab CMV IgM Ab EBV Capsid Ag IgG Ab EBV Capsid Ag IgM Ab EBV Early Antigen EBV Nuclear Ag IgG Ab EBV Antibody Interp Hepatitis A IgM Ab Hepatitis A Ab Total Hep Bs Antigen Hep Bs Antibody Hep B Core IgM Ab Hepatitis C Antibody 09/03/20 09/02/20 09/02/20 05:41 16:44 16:44 WBC 9.7 RBC 4.39 L Hgb 14.0 Hct 37.3 L MCV 85.0 MCH 31.9 MCHC 37.5 H RDW 13.2 Plt Count 224 MPV 9.6 Neut % (Auto) 61.7 Lymph % (Auto) 22.9 D[place] % (Auto) 10.0 Eos % (Auto) 4.7 Baso % (Auto) 0.7 Lymph # (Auto) 2.23 D[place] # (Auto) 0.97 H Eos # (Auto) 0.46 Baso # (Auto) 0.07 Seg Neutrophils % Lymphocytes % Monocytes % (Manual) Eosinophils % (Manual) Absolute Neutrophils 6.01 Platelet Estimate RBC Morphology PT INR VBG Lactic Acid Sodium Potassium Chloride Carbon Dioxide Anion Gap BUN Creatinine POC Creatinine GFR Calculation Glucose Uric Acid Calcium Phosphorus Magnesium Iron TIBC Unsat Iron Binding Transferrin % Sat Total Bilirubin Direct Bilirubin GGT AST ALT Alkaline Phosphatase Lactate Dehydrogenase C-Reactive Protein Total Protein Albumin Globulin Albumin/Globulin Ratio Triglycerides Lipase Urine Color Urine Appearance Urine pH Ur Specific [place] Urine Protein Urine Glucose (UA) Urine Ketones Urine Occult Blood Urine Nitrate Urine Bilirubin Urine Urobilinogen Ur Leukocyte Esterase Ur Culture Indicated? Acetaminophen CMV IgG Ab CMV IgM Ab EBV Capsid Ag IgG Ab Pending EBV Capsid Ag IgM Ab Pending EBV Early Antigen Pending EBV Nuclear Ag IgG Ab Pending EBV Antibody Interp Pending Hepatitis A IgM Ab Hepatitis A Ab Total Hep Bs Antigen Hep Bs Antibody Hep B Core IgM Ab Hepatitis C Antibody 09/02/20 09/02/20 09/02/20 16:44 15:59 14:30 WBC RBC Hgb Hct MCV MCH MCHC RDW Plt Count MPV Neut % (Auto) Lymph % (Auto) [place] % (Auto) Eos % (Auto) Baso % (Auto) Lymph # (Auto) [place] # (Auto) Eos # (Auto) Baso # (Auto) Seg Neutrophils % Lymphocytes % Monocytes % (Manual) Eosinophils % (Manual) Absolute Neutrophils Platelet Estimate RBC Morphology PT INR VBG Lactic Acid Sodium Potassium Chloride Carbon Dioxide Anion Gap BUN Creatinine 0.7 POC Creatinine 0.7 GFR Calculation 112 Glucose Uric Acid Calcium Phosphorus Magnesium Iron TIBC Unsat Iron Binding Transferrin % Sat Total Bilirubin Direct Bilirubin GGT AST ALT Alkaline Phosphatase Lactate Dehydrogenase C-Reactive Protein Total Protein Albumin Globulin Albumin/Globulin Ratio Triglycerides Lipase Urine Color [place] Urine Appearance Clear Urine pH 7.0 Ur Specific [place] 1.006 Urine Protein Negative Urine Glucose (UA) Negative Urine Ketones Negative Urine Occult Blood Negative Urine Nitrate Negative Urine Bilirubin 2.0 A Urine Urobilinogen Negative Ur Leukocyte Esterase Negative Ur Culture Indicated? No Acetaminophen CMV IgG Ab Pending CMV IgM Ab Pending EBV Capsid Ag IgG Ab EBV Capsid Ag IgM Ab EBV Early Antigen EBV Nuclear Ag IgG Ab EBV Antibody Interp Hepatitis A IgM Ab Non-reactive Hepatitis A Ab Total Hep Bs Antigen Negative Hep Bs Antibody Hep B Core IgM Ab Non-reactive Hepatitis C Antibody Non-reactive 09/02/20 09/02/20 09/02/20 13:38 13:38 13:38 WBC RBC Hgb Hct MCV MCH MCHC RDW Plt Count MPV Neut % (Auto) Lymph % (Auto) [place] % (Auto) Eos % (Auto) Baso % (Auto) Lymph # (Auto) [place] # (Auto) Eos # (Auto) Baso # (Auto) Seg Neutrophils % Lymphocytes % Monocytes % (Manual) Eosinophils % (Manual) Absolute Neutrophils Platelet Estimate RBC Morphology PT INR VBG Lactic Acid Sodium Potassium Chloride Carbon Dioxide Anion Gap BUN Creatinine POC Creatinine GFR Calculation Glucose Uric Acid Calcium Phosphorus Magnesium Iron TIBC Unsat Iron Binding Transferrin % Sat Total Bilirubin Direct Bilirubin GGT AST ALT Alkaline Phosphatase Lactate Dehydrogenase C-Reactive Protein Total Protein Albumin Globulin Albumin/Globulin Ratio Triglycerides Lipase Urine Color Urine Appearance Urine pH Ur Specific [place] Urine Protein Urine Glucose (UA) Urine Ketones Urine Occult Blood Urine Nitrate Urine Bilirubin Urine Urobilinogen Ur Leukocyte Esterase Ur Culture Indicated? Acetaminophen < 5.0 CMV IgG Ab CMV IgM Ab EBV Capsid Ag IgG Ab EBV Capsid Ag IgM Ab EBV Early Antigen EBV Nuclear Ag IgG Ab EBV Antibody Interp Hepatitis A IgM Ab Hepatitis A Ab Total Pending Hep Bs Antigen Hep Bs Antibody 3.65 negative Hep B Core IgM Ab Hepatitis C Antibody Non-reactive 09/02/20 09/02/20 09/02/20 13:38 13:38 13:38 WBC 12.4 H RBC 4.79 Hgb 15.0 Hct 41.2 MCV 86.0 MCH 31.3 MCHC 36.4 H RDW 13.2 Plt Count 212 MPV 9.9 Neut % (Auto) Lymph % (Auto) [place] % (Auto) Eos % (Auto) Baso % (Auto) Lymph # (Auto) [place] # (Auto) Eos # (Auto) Baso # (Auto) Seg Neutrophils % 62 Lymphocytes % 24 Monocytes % (Manual) 10 Eosinophils % (Manual) 4 Absolute Neutrophils Platelet Estimate Normal RBC Morphology Normal PT 13.0 INR 0.9 VBG Lactic Acid 0.7 Sodium Potassium Chloride Carbon Dioxide Anion Gap BUN Creatinine POC Creatinine GFR Calculation Glucose Uric Acid Calcium Phosphorus Magnesium Iron TIBC Unsat Iron Binding Transferrin % Sat Total Bilirubin Direct Bilirubin GGT AST ALT Alkaline Phosphatase Lactate Dehydrogenase C-Reactive Protein Total Protein Albumin Globulin Albumin/Globulin Ratio Triglycerides Lipase Urine Color Urine Appearance Urine pH Ur Specific [place] Urine Protein Urine Glucose (UA) Urine Ketones Urine Occult Blood Urine Nitrate Urine Bilirubin Urine Urobilinogen Ur Leukocyte Esterase Ur Culture Indicated? Acetaminophen CMV IgG Ab CMV IgM Ab EBV Capsid Ag IgG Ab EBV Capsid Ag IgM Ab EBV Early Antigen EBV Nuclear Ag IgG Ab EBV Antibody Interp Hepatitis A IgM Ab Hepatitis A Ab Total Hep Bs Antigen Hep Bs Antibody Hep B Core IgM Ab Hepatitis C Antibody 09/02/20 13:38 WBC RBC Hgb Hct MCV MCH MCHC RDW Plt Count MPV Neut % (Auto) Lymph % (Auto) [place] % (Auto) Eos % (Auto) Baso % (Auto) Lymph # (Auto) [place] # (Auto) Eos # (Auto) Baso # (Auto) Seg Neutrophils % Lymphocytes % Monocytes % (Manual) Eosinophils % (Manual) Absolute Neutrophils Platelet Estimate RBC Morphology PT INR VBG Lactic Acid Sodium 133 Potassium 3.7 Chloride 100 Carbon Dioxide 23 Anion Gap 10.0 BUN 6 Creatinine TNP POC Creatinine GFR Calculation TNP Glucose 121 H Uric Acid Calcium 8.5 L Phosphorus Magnesium Iron TIBC Unsat Iron Binding Transferrin % Sat Total Bilirubin 11.5 H Direct Bilirubin GGT AST 196 H ALT 407 H Alkaline Phosphatase 202 H Lactate Dehydrogenase C-Reactive Protein 1.50 H Total Protein 6.4 Albumin 3.6 Globulin 2.8 Albumin/Globulin Ratio 1.3 Triglycerides Lipase 26 Urine Color Urine Appearance Urine pH Ur Specific [place] Urine Protein Urine Glucose (UA) Urine Ketones Urine Occult Blood Urine Nitrate Urine Bilirubin Urine Urobilinogen Ur Leukocyte Esterase Ur Culture Indicated? Acetaminophen CMV IgG Ab CMV IgM Ab EBV Capsid Ag IgG Ab EBV Capsid Ag IgM Ab EBV Early Antigen EBV Nuclear Ag IgG Ab EBV Antibody Interp Hepatitis A IgM Ab Hepatitis A Ab Total Hep Bs Antigen Hep Bs Antibody Hep B Core IgM Ab Hepatitis C Antibody Imaging and Cardiology US - abdomen: Additional comments: IMPRESSION: Anatomically normal liver Abnormally thickened gallbladder wall. This is a nonspecific finding which may be seen after eating or with chronic cholecystitis Heterogeneous collection around the umbilicus at the site of recent surgery. This could be evolving scar tissue with inflammation, abscess or recurrent hernia. Discharge Plan Patient/Caregiver Discharge Instructions Activity: increase activity as tolerated Diet: Regular Diet Instructions: Jaundice (DC) Activity Restrictions/Additional Instructions: Avoid acetaminophen-containing products for the next 3-4 weeks, or until cleared by your PCP. Stand Alone Forms: Work/Release Restrictions Prescriptions: Continued anastrozole [Arimidex] 1 mg Tablet 0.5 mg PO 2-3XW PRN (Reason: Take with Testosterone) RF: 0 testosterone cypionate 100 mg/mL oil 250 mg IM QWEEK RF: 0 Follow Up Plan Follow up with: Harish Bobby MD [Physician] - 09/07/20 1:30 pm Dean French PA-C [Primary Care Provider] - Patient Disposition: Home, Self-Care Prognosis: Good Overall status at discharge: patient is progressing back to baseline Discharge Orders: Discharge Order (Routine); Ordered 09/03/20 Ordered By: Anita SWEENEY VTE Deep Vein Thrombosis/Pulmonary Embolism Present on Admission: No
[2020-09-06 18:11] LABS: EBV Virus Capsid Ag IgM Ab <36.00 U/mL
[2020-09-06 22:31] LABS: CMV IgM Antibody < 30.00 AU/mL
[2020-09-09 14:27] LABS: CMV IgG Antibody < 0.60 U/mL
[2020-09-09 16:17] LABS: EBV Early Antigen-SO < 9.00 U/mL
== END 2020-09-03 13:55 | disposition home or self-care (01) ==
LOC: ED 12:52 → MEDSUR 12:52
PROVIDERS: ADMIT Internal Medicine; ATTEND Internal Medicine